=== PATIENT | male | born 1995 | race American Indian/Alaskan Native ===

== ENCOUNTER 2019-04-11 13:21 | Emergency (ER) | payer SELFPAY | END 2019-04-11 17:05 | disposition left against medical advice (07) | LOC: ED 13:21 | DX: T55.1X1A Toxic effect of detergents, accidental (unintentional), initial encounter (principal); Z53.21 Procedure and treatment not carried out due to patient leaving prior to being seen by health care provider; Y92.89 Other specified places as the place of occurrence of the external cause ==

== ENCOUNTER 2021-12-10 17:44 | Emergency (ER) | payer SELFPAY ==
[2021-12-10 20:39] VITALS: BP 131/72
== END 2021-12-11 01:00 | disposition left against medical advice (07) ==
LOC: ED 17:44
DX: K04.7 Periapical abscess without sinus (principal); Z53.21 Procedure and treatment not carried out due to patient leaving prior to being seen by health care provider